=== PATIENT | male | born 1970 | race Caucasian/White ===

== ENCOUNTER → 2016-09-28 | Outpatient (CLI) | payer BC ==
[~2016-09-28] MED LIST: ASPIRIN LITE C325 MG PO; ATORVASTATIN CA20 M1 PO; CABERGOLINE0.5 MG PO; CARVEDILOL12.5 MG PO; DAYPRO600 M1 PO; L-THYROXINE PO; LEVIMER SQ; LOSARTAN POTASS50 M1 PO; NOVALOG; ROBAXIN750 MG PO; SKELAXIN800 MG PO; VICODIN 500 MG-1 TAB PO; VITAMIN D50000 I3 PO
== END | disposition home or self-care (01) ==
LOC: CARD 08-19 14:00
DX: R06.09 Other forms of dyspnea (principal)

== ENCOUNTER → 2017-05-03 | Outpatient (CLI) | payer BC ==
[2017-05-03 10:10] LABS: BUN 26 mg/dl (7-24)
[2017-05-03 10:22] LABS: CHOLESTEROL 153 mg/dL (<200); CREATININE 1.36 mg/dL (0.70-1.30); HDL CHOLESTEROL 55 mg/dl (40-60); LDL CHOLESTEROL 75 mg/dL (9-159); SGOT/AST 21 IU/L (3-35); SGPT/ALT 51 U/L (12-78); TRIGLYCERIDES 115 mg/dl (<150); VLDL CHOLESTEROL 23 mg/dL (6-40)
[2017-05-03 10:32] LABS: VITAMIN D, 25-HYDROXY 10.2 ng/mL (30-100)
== END | disposition home or self-care (01) ==
LOC: LAB 08:50
PROVIDERS: Internal Medicine Endocrinology, Diabetes & Metabolism
DX: I10 Essential (primary) hypertension (principal); E10.65 Type 1 diabetes mellitus with hyperglycemia; D35.2 Benign neoplasm of pituitary gland; E29.1 Testicular hypofunction; E78.5 Hyperlipidemia, unspecified; E22.1 Hyperprolactinemia; E55.9 Vitamin D deficiency, unspecified

== ENCOUNTER → 2017-11-04 | Outpatient (CLI) | payer BC ==
[2017-11-04 05:19] LABS: THYROID STIM HORMONE (HS) 1.46 uIU/ml (0.358-4.75)
== END | disposition home or self-care (01) ==
LOC: LAB 04:19
PROVIDERS: Internal Medicine Endocrinology, Diabetes & Metabolism
DX: E10.65 Type 1 diabetes mellitus with hyperglycemia (principal); E22.1 Hyperprolactinemia; D35.2 Benign neoplasm of pituitary gland; E55.9 Vitamin D deficiency, unspecified; E29.1 Testicular hypofunction

== ENCOUNTER → 2018-05-05 | Outpatient (CLI) | payer BC ==
[2018-05-05 09:09] LABS: CREATININE 1.62 mg/dL (0.70-1.30)
[2018-05-05 09:14] LABS: THYROID STIM HORMONE (HS) 1.46 uIU/ml (0.358-4.75)
[2018-05-06 05:06] LABS: LDL CHOLESTEROL (DIRECT) 194 mg/dL (0-99)
== END | disposition home or self-care (01) ==
LOC: LAB 08:03
PROVIDERS: Internal Medicine Endocrinology, Diabetes & Metabolism
DX: I10 Essential (primary) hypertension (principal); E10.65 Type 1 diabetes mellitus with hyperglycemia; E22.1 Hyperprolactinemia; D35.2 Benign neoplasm of pituitary gland; E55.9 Vitamin D deficiency, unspecified; E29.1 Testicular hypofunction

== ENCOUNTER → 2018-08-04 | Outpatient (CLI) | payer BC ==
[2018-08-04 08:02] LABS: CREATININE 1.71 mg/dL (0.70-1.30)
[2018-08-04 08:10] LABS: THYROID STIM HORMONE (HS) 1.25 uIU/ml (0.358-4.75)
[2018-08-04 08:47] LABS: VITAMIN D, 25-HYDROXY 40.6 ng/mL (30-100)
[2018-08-05 06:12] LABS: PROLACTIN 004465 14.8 ng/mL (4.0-15.2)
[2018-08-05 08:11] LABS: LDL CHOLESTEROL (DIRECT) 98 mg/dL (0-99)
== END | disposition home or self-care (01) ==
LOC: LAB 06:46
PROVIDERS: Internal Medicine Endocrinology, Diabetes & Metabolism
DX: I10 Essential (primary) hypertension (principal); E10.65 Type 1 diabetes mellitus with hyperglycemia; E78.5 Hyperlipidemia, unspecified; E22.1 Hyperprolactinemia; D35.2 Benign neoplasm of pituitary gland; E55.9 Vitamin D deficiency, unspecified

== ENCOUNTER → 2018-11-18 | Outpatient (CLI) | payer BC ==
[2018-11-18 04:46] LABS: CREATININE 1.69 mg/dL (0.70-1.30)
[2018-11-18 04:52] LABS: THYROID STIM HORMONE (HS) 1.28 uIU/ml (0.358-4.75)
== END | disposition home or self-care (01) ==
LOC: LAB 04:04
PROVIDERS: Internal Medicine Endocrinology, Diabetes & Metabolism
DX: E10.65 Type 1 diabetes mellitus with hyperglycemia (principal); E22.1 Hyperprolactinemia; D35.2 Benign neoplasm of pituitary gland; E55.9 Vitamin D deficiency, unspecified; I10 Essential (primary) hypertension; E78.5 Hyperlipidemia, unspecified

== ENCOUNTER → 2019-03-09 | Outpatient (CLI) | payer BC ==
[2019-03-09 07:02] LABS: CREATININE 2.19 mg/dL (0.70-1.30)
[2019-03-09 07:08] LABS: THYROID STIM HORMONE (HS) 2.17 uIU/ml (0.358-4.75)
[2019-03-09 08:32] LABS: VITAMIN D, 25-HYDROXY 44.5 ng/mL (30-100)
== END | disposition home or self-care (01) ==
LOC: LAB 05:51
PROVIDERS: Internal Medicine Endocrinology, Diabetes & Metabolism
DX: E10.65 Type 1 diabetes mellitus with hyperglycemia (principal); I10 Essential (primary) hypertension; E78.5 Hyperlipidemia, unspecified; E22.1 Hyperprolactinemia; D35.2 Benign neoplasm of pituitary gland; E55.9 Vitamin D deficiency, unspecified; R35.1 Nocturia

== ENCOUNTER → 2019-06-18 | Outpatient (CLI) | payer BC ==
[2019-06-18 06:27] LABS: CREATININE 1.79 mg/dL (0.70-1.30)
[2019-06-18 06:33] LABS: THYROID STIM HORMONE (HS) 1.2 uIU/ml (0.358-4.75)
== END | disposition home or self-care (01) ==
LOC: LAB 04:43
PROVIDERS: Internal Medicine Endocrinology, Diabetes & Metabolism
DX: E10.65 Type 1 diabetes mellitus with hyperglycemia (principal); I10 Essential (primary) hypertension; E22.1 Hyperprolactinemia; D35.2 Benign neoplasm of pituitary gland; E55.9 Vitamin D deficiency, unspecified; E29.1 Testicular hypofunction; R35.1 Nocturia

== ENCOUNTER → 2019-11-26 | Outpatient (CLI) | payer BC ==
[2019-11-26 08:34] LABS: CREATININE 1.78 mg/dL (0.70-1.30); THYROID STIM HORMONE (HS) 2.15 uIU/ml (0.358-4.75)
[2019-11-26 09:49] LABS: VITAMIN D, 25-HYDROXY 58.9 ng/mL (30-100)
== END | disposition home or self-care (01) ==
LOC: LAB 06:52
PROVIDERS: Internal Medicine Endocrinology, Diabetes & Metabolism
DX: I12.9 Hypertensive chronic kidney disease with stage 1 through stage 4 chronic kidney disease, or unspecified chronic kidney disease (principal); N18.9 Chronic kidney disease, unspecified; E10.65 Type 1 diabetes mellitus with hyperglycemia; E78.5 Hyperlipidemia, unspecified; E22.1 Hyperprolactinemia; D35.1 Benign neoplasm of parathyroid gland; D35.2 Benign neoplasm of pituitary gland; E55.9 Vitamin D deficiency, unspecified; E29.1 Testicular hypofunction; R35.1 Nocturia

== ENCOUNTER → 2020-03-28 | Outpatient (CLI) | payer BC ==
[2020-03-28 09:18] LABS: BILIRUBIN Negative (Negative); BLOOD Negative (Negative); CLARITY Clear (Clear); COLOR Yellow (Yellow); GLUCOSE 2+ (Negative); KETONE Negative (Negative); LEUKO ESTERASE Negative (Negative); NITRITE Negative (Negative); SPECIFIC GRAVITY 1.015 (1.001-1.030)
[2020-03-28 09:24] LABS: URINE CREATININE RANDOM 68.2 mg/dL
[2020-03-28 09:25] LABS: CREATININE 1.99 mg/dL (0.70-1.30); POTASSIUM 4.6 mmol/L (3.5-5.1); TOTAL PROTEIN 7.3 gm/dL (6.4-8.2); URIC ACID 6.3 mg/dL (3.5-7.2)
[2020-03-28 09:33] LABS: BASO # 0.1 10*3/uL (0.0-0.1); BASO % 0.6 % (0.0-1.0); EOS # 0.2 10*3/uL (0.0-0.4); EOS % 2.5 % (1.0-4.0); HEMATOCRIT 42.4 % (42.0-52.0); LYMPH # 3.4 10*3/uL (1.3-4.4); LYMPH % 35.8 % (27.0-41.0); MEAN CELL VOLUME 88.1 fl (80.0-94.0); MEAN CORPUSCULAR HGB 28.1 pg (27.0-31.0); MEAN CORPUSCULAR HGB CONC 31.8 g/dl (33.0-37.0); MEAN PLATELET VOLUME 12.3 fl (9.6-12.3); MONO # 0.9 10*3/uL (0.1-1.0); NEUT # 4.9 10*3/uL (2.3-7.9); NEUT % 51.8 % (47.0-73.0); PLATELET COUNT AUTOMATED 249 10*3/uL (130-400); RED BLOOD COUNT 4.81 10*6/uL (4.50-5.90); RED CELL DISTRI WIDTH 13.5 % (0-14.5); WHITE BLOOD COUNT 9.5 10*3/uL (4.8-10.8)
[2020-03-28 09:39] LABS: BACTERIA TRACE
[2020-03-29 09:09] LABS: CREATININE,URINE 63.9 mg/dL (Not Estab.)
== END | disposition home or self-care (01) ==
LOC: LAB 08:33
PROVIDERS: ATTEND Internal Medicine Nephrology
DX: I12.9 Hypertensive chronic kidney disease with stage 1 through stage 4 chronic kidney disease, or unspecified chronic kidney disease (principal); N18.30 Chronic kidney disease, stage 3 unspecified; E10.29 Type 1 diabetes mellitus with other diabetic kidney complication; E66.9 Obesity, unspecified

== ENCOUNTER → 2020-08-08 | Outpatient (CLI) | payer BC ==
[2020-08-08 06:14] LABS: CREATININE 1.88 mg/dL (0.70-1.30)
[2020-08-08 06:25] LABS: THYROID STIM HORMONE (HS) 2.42 uIU/ml (0.358-4.75)
== END | disposition home or self-care (01) ==
LOC: LAB 04:33
PROVIDERS: ATTEND Internal Medicine Endocrinology, Diabetes & Metabolism
DX: I12.9 Hypertensive chronic kidney disease with stage 1 through stage 4 chronic kidney disease, or unspecified chronic kidney disease (principal); N18.9 Chronic kidney disease, unspecified; E10.65 Type 1 diabetes mellitus with hyperglycemia; E78.5 Hyperlipidemia, unspecified; E22.1 Hyperprolactinemia; D35.2 Benign neoplasm of pituitary gland; E55.9 Vitamin D deficiency, unspecified; R35.1 Nocturia

== ENCOUNTER → 2020-12-16 | Outpatient (CLI) | payer BC ==
[2020-12-16 09:59] LABS: CREATININE 1.94 mg/dL (0.70-1.30); THYROID STIM HORMONE (HS) 1.96 uIU/ml (0.358-4.75)
== END | disposition home or self-care (01) ==
LOC: LAB 08:54
PROVIDERS: ATTEND Internal Medicine Endocrinology, Diabetes & Metabolism
DX: I12.9 Hypertensive chronic kidney disease with stage 1 through stage 4 chronic kidney disease, or unspecified chronic kidney disease (principal); E10.22 Type 1 diabetes mellitus with diabetic chronic kidney disease; N18.9 Chronic kidney disease, unspecified; E10.65 Type 1 diabetes mellitus with hyperglycemia; E78.5 Hyperlipidemia, unspecified; E22.1 Hyperprolactinemia; D35.2 Benign neoplasm of pituitary gland; E55.9 Vitamin D deficiency, unspecified; R35.1 Nocturia

== ENCOUNTER → 2021-05-29 | Outpatient (CLI) | payer BC ==
[2021-05-29 06:11] LABS: CREATININE 1.93 mg/dL (0.70-1.30)
[2021-05-29 06:17] LABS: THYROID STIM HORMONE (HS) 2.32 uIU/ml (0.358-4.75)
[2021-05-29 07:26] LABS: VITAMIN D, 25-HYDROXY 35.9 ng/mL (30-100)
== END ==
LOC: LAB 05:13
PROVIDERS: ATTEND Internal Medicine Endocrinology, Diabetes & Metabolism
DX: I12.9 Hypertensive chronic kidney disease with stage 1 through stage 4 chronic kidney disease, or unspecified chronic kidney disease (principal); E78.5 Hyperlipidemia, unspecified; E10.65 Type 1 diabetes mellitus with hyperglycemia; E22.1 Hyperprolactinemia; D35.2 Benign neoplasm of pituitary gland; E55.9 Vitamin D deficiency, unspecified; R35.1 Nocturia; N18.9 Chronic kidney disease, unspecified; E03.9 Hypothyroidism, unspecified

== ENCOUNTER → 2021-08-27 | Outpatient (CLI) | payer BC ==
[2021-08-27 06:30] LABS: CREATININE 2.53 mg/dL (0.70-1.30)
[2021-08-27 06:38] LABS: THYROID STIM HORMONE (HS) 1.27 uIU/ml (0.358-4.75)
== END | disposition home or self-care (01) ==
LOC: LAB 05:29
PROVIDERS: ATTEND Internal Medicine Endocrinology, Diabetes & Metabolism
DX: E10.65 Type 1 diabetes mellitus with hyperglycemia (principal); E22.1 Hyperprolactinemia; D35.2 Benign neoplasm of pituitary gland; E55.9 Vitamin D deficiency, unspecified; E29.1 Testicular hypofunction; I12.9 Hypertensive chronic kidney disease with stage 1 through stage 4 chronic kidney disease, or unspecified chronic kidney disease; E10.22 Type 1 diabetes mellitus with diabetic chronic kidney disease; N18.9 Chronic kidney disease, unspecified; R35.1 Nocturia; E03.9 Hypothyroidism, unspecified

== ENCOUNTER → 2022-01-21 | Outpatient (CLI) | payer BC ==
[2022-01-21 09:17] LABS: HEMATOCRIT 44.3 % (42.0-52.0); MEAN CELL VOLUME 84.5 fl (80.0-94.0); MEAN CORPUSCULAR HGB 28.1 pg (27.0-31.0); MEAN CORPUSCULAR HGB CONC 33.2 g/dl (33.0-37.0); MEAN PLATELET VOLUME 12.1 fl (9.6-12.3); RED BLOOD COUNT 5.24 10*6/uL (4.50-5.90); RED CELL DISTRI WIDTH 13.2 % (0-14.5); WHITE BLOOD COUNT 8.9 10*3/uL (4.8-10.8)
[2022-01-21 09:38] LABS: CREATININE 1.58 mg/dL (0.70-1.30); POTASSIUM 4.1 mmol/L (3.5-5.1)
[2022-01-21 09:45] LABS: FREE T4 1.17 ng/dl (0.76-1.46); THYROID STIM HORMONE (HS) 2.26 uIU/ml (0.358-4.75); TOTAL PROTEIN 7.3 gm/dL (6.4-8.2)
[2022-01-21 10:20] LABS: VITAMIN D, 25-HYDROXY 31.6 ng/mL (30-100)
== END | disposition home or self-care (01) ==
LOC: LAB 08:50
PROVIDERS: Family Medicine; ATTEND Internal Medicine Endocrinology, Diabetes & Metabolism
DX: Z12.5 Encounter for screening for malignant neoplasm of prostate (principal); I12.9 Hypertensive chronic kidney disease with stage 1 through stage 4 chronic kidney disease, or unspecified chronic kidney disease; N18.30 Chronic kidney disease, stage 3 unspecified; E10.65 Type 1 diabetes mellitus with hyperglycemia; E78.00 Pure hypercholesterolemia, unspecified; E55.9 Vitamin D deficiency, unspecified

== ENCOUNTER → 2022-02-11 | Outpatient (CLI) | payer BC | END | disposition home or self-care (01) | LOC: LAB 10:40 | PROVIDERS: ATTEND Family Medicine | DX: I12.9 Hypertensive chronic kidney disease with stage 1 through stage 4 chronic kidney disease, or unspecified chronic kidney disease (principal); E11.22 Type 2 diabetes mellitus with diabetic chronic kidney disease; E78.00 Pure hypercholesterolemia, unspecified; N18.30 Chronic kidney disease, stage 3 unspecified; E55.9 Vitamin D deficiency, unspecified; Z12.5 Encounter for screening for malignant neoplasm of prostate ==

== ENCOUNTER → 2022-02-26 | Outpatient (CLI) | payer BC | END | disposition home or self-care (01) | LOC: RAD 17:58 | PROVIDERS: ATTEND Family Medicine | DX: M51.36 Other intervertebral disc degeneration, lumbar region (principal); M25.78 Osteophyte, vertebrae ==

== ENCOUNTER → 2022-07-16 | Outpatient (CLI) | payer BC ==
[2022-07-16 10:43] LABS: BUN 25 mg/dl (9-23); CHOLESTEROL 180 mg/dL (<200); LDL CHOLESTEROL 98 mg/dL (9-159); SGPT/ALT 43 U/L (10-49); THYROID STIM HORMONE (HS) 2.147 uIU/ml (0.550-4.780); TRIGLYCERIDES 178 mg/dl (<150)
== END | disposition home or self-care (01) ==
LOC: LAB 09:14
PROVIDERS: ATTEND Internal Medicine Endocrinology, Diabetes & Metabolism
DX: I12.9 Hypertensive chronic kidney disease with stage 1 through stage 4 chronic kidney disease, or unspecified chronic kidney disease (principal); E10.22 Type 1 diabetes mellitus with diabetic chronic kidney disease; N18.9 Chronic kidney disease, unspecified; E10.65 Type 1 diabetes mellitus with hyperglycemia; E22.1 Hyperprolactinemia; D35.2 Benign neoplasm of pituitary gland; E55.9 Vitamin D deficiency, unspecified; E29.1 Testicular hypofunction; R35.1 Nocturia; E03.9 Hypothyroidism, unspecified

== ENCOUNTER → 2022-11-27 | Outpatient (CLI) | payer BC ==
[2022-11-27 09:10] LABS: THYROID STIM HORMONE (HS) 2.642 uIU/ml (0.550-4.780)
== END | disposition home or self-care (01) ==
LOC: LAB 07:42
PROVIDERS: ATTEND Internal Medicine Endocrinology, Diabetes & Metabolism
DX: I12.9 Hypertensive chronic kidney disease with stage 1 through stage 4 chronic kidney disease, or unspecified chronic kidney disease (principal); N18.9 Chronic kidney disease, unspecified; E11.22 Type 2 diabetes mellitus with diabetic chronic kidney disease; E78.5 Hyperlipidemia, unspecified; R22.1 Localized swelling, mass and lump, neck; E55.9 Vitamin D deficiency, unspecified; E03.9 Hypothyroidism, unspecified; D35.2 Benign neoplasm of pituitary gland; R35.1 Nocturia

== ENCOUNTER → 2023-05-07 | Outpatient (CLI) | payer BC | END | disposition home or self-care (01) | LOC: LAB 08:28 | PROVIDERS: ATTEND Internal Medicine Endocrinology, Diabetes & Metabolism | DX: E10.22 Type 1 diabetes mellitus with diabetic chronic kidney disease (principal); I12.9 Hypertensive chronic kidney disease with stage 1 through stage 4 chronic kidney disease, or unspecified chronic kidney disease; N18.9 Chronic kidney disease, unspecified; E78.5 Hyperlipidemia, unspecified; E22.1 Hyperprolactinemia; D35.2 Benign neoplasm of pituitary gland; E55.9 Vitamin D deficiency, unspecified; R35.1 Nocturia; E03.9 Hypothyroidism, unspecified ==

== ENCOUNTER → 2023-09-09 | Outpatient (CLI) | payer BC | END | disposition home or self-care (01) | LOC: LAB 08:25 | PROVIDERS: ATTEND Internal Medicine Endocrinology, Diabetes & Metabolism | DX: E10.65 Type 1 diabetes mellitus with hyperglycemia (principal); E10.22 Type 1 diabetes mellitus with diabetic chronic kidney disease; I12.9 Hypertensive chronic kidney disease with stage 1 through stage 4 chronic kidney disease, or unspecified chronic kidney disease; N18.9 Chronic kidney disease, unspecified; E03.9 Hypothyroidism, unspecified; E22.1 Hyperprolactinemia; D35.2 Benign neoplasm of pituitary gland; E55.9 Vitamin D deficiency, unspecified; E29.1 Testicular hypofunction; R35.1 Nocturia ==

== ENCOUNTER 2023-10-25 07:28 | Emergency (ER) | payer BC ==
[~2023-10-25] VITALS: Ht 177.8 cm; Wt 95.3 kg
[2023-10-25 09:04] LABS: BASO % 0.3 % (0.0-1.0); EOS # 0.4 10*3/uL (0.0-0.4); EOS % 3.5 % (1.0-4.0); HEMATOCRIT 40.3 % (42.0-52.0); LYMPH % 27.8 % (27.0-41.0); MEAN CELL VOLUME 87.2 fl (80.0-94.0); MEAN CORPUSCULAR HGB 28.1 pg (27.0-31.0); MEAN CORPUSCULAR HGB CONC 32.3 g/dl (33.0-37.0); MONO # 1.4 10*3/uL (0.1-1.0); MONO % 12.8 % (3.0-9.0); NEUT # 5.9 10*3/uL (2.3-7.9); NEUT % 55.2 % (47.0-73.0); PLATELET COUNT AUTOMATED 199 10*3/uL (130-400); RED BLOOD COUNT 4.62 10*6/uL (4.50-5.90); RED CELL DISTRI WIDTH 13.7 % (0-14.5); WHITE BLOOD COUNT 10.7 10*3/uL (4.8-10.8)
[2023-10-25 09:25] LABS: POTASSIUM 4.8 mmol/L (3.4-5.1)
[2023-10-25] MEDS ORDERED: MUCINEX ER600 MG PO (10:44)
== END 2023-10-25 10:48 | disposition home or self-care (01) ==
LOC: ED 07:28
PROVIDERS: Emergency Medicine
DX: J06.9 Acute upper respiratory infection, unspecified (principal); Z20.822 Contact with and (suspected) exposure to COVID-19; I10 Essential (primary) hypertension; E11.9 Type 2 diabetes mellitus without complications; E78.00 Pure hypercholesterolemia, unspecified; Z79.4 Long term (current) use of insulin; Z79.82 Long term (current) use of aspirin; Z79.899 Other long term (current) drug therapy

== ENCOUNTER → 2024-02-11 | Outpatient (CLI) | payer BC ==
[~2024-02-11] MED LIST changes: +MUCINEX ER600 MG PO
[2024-02-11 09:17] LABS: ALKALINE PHOSPHATASE 164 U/L (46-116); BUN 25 mg/dl (9-23); CHLORIDE 105 mmol/L (98-107); CHOLESTEROL 180 mg/dL (<200); LDL CHOLESTEROL 87 mg/dL (9-159); POTASSIUM 3.9 mmol/L (3.4-5.1); SGPT/ALT 58 U/L (5-49); TOTAL PROTEIN 6.8 gm/dL (6.0-8.0); TRIGLYCERIDES 249 mg/dl (<150)
== END | disposition home or self-care (01) ==
LOC: LAB 08:27
PROVIDERS: ATTEND Internal Medicine Endocrinology, Diabetes & Metabolism
DX: I12.9 Hypertensive chronic kidney disease with stage 1 through stage 4 chronic kidney disease, or unspecified chronic kidney disease (principal); E10.22 Type 1 diabetes mellitus with diabetic chronic kidney disease; E10.65 Type 1 diabetes mellitus with hyperglycemia; N18.9 Chronic kidney disease, unspecified; E78.5 Hyperlipidemia, unspecified; E22.1 Hyperprolactinemia; D35.2 Benign neoplasm of pituitary gland; E55.9 Vitamin D deficiency, unspecified; E29.1 Testicular hypofunction; R35.1 Nocturia; E03.9 Hypothyroidism, unspecified

== ENCOUNTER → 2024-02-16 | Outpatient (CLI) | payer BC ==
[~2024-02-16] MED LIST changes: +TRAMADOL HCL50 MG PO
== END | disposition home or self-care (01) ==
LOC: RAD 12:42
PROVIDERS: ATTEND Family Medicine
DX: M19.011 Primary osteoarthritis, right shoulder (principal); M47.812 Spondylosis without myelopathy or radiculopathy, cervical region; M48.02 Spinal stenosis, cervical region; M25.78 Osteophyte, vertebrae

== ENCOUNTER 2024-02-19 04:31 | Emergency (ER) | payer BC ==
[~2024-02-19] VITALS: Ht 177.8 cm; Wt 99.8 kg
[~2024-02-19 04:31] MED LIST changes: -TRAMADOL HCL50 MG PO
[2024-02-19] MEDS ORDERED: Dexamethasone Sodium Phospha 20 MG/5 ML VIAL IM ONE (05:10)
[2024-02-19] MEDS ORDERED: TRAMADOL HCL50 MG PO (05:10)
== END 2024-02-19 05:54 | disposition home or self-care (01) ==
LOC: ED 04:31
DX: M19.011 Primary osteoarthritis, right shoulder (principal); E11.9 Type 2 diabetes mellitus without complications; J45.909 Unspecified asthma, uncomplicated; I10 Essential (primary) hypertension; E78.00 Pure hypercholesterolemia, unspecified; Z98.890 Other specified postprocedural states

== ENCOUNTER → 2024-05-25 | Outpatient (CLI) | payer BC ==
[~2024-05-25] MED LIST changes: +TRAMADOL HCL50 MG PO
[2024-05-25 12:15] LABS: MEAN CELL VOLUME 86.2 fl (80.0-94.0); MEAN CORPUSCULAR HGB 28.5 pg (27.0-31.0); MEAN CORPUSCULAR HGB CONC 33.1 g/dl (33.0-37.0); MEAN PLATELET VOLUME 12.2 fl (9.6-12.3); RED BLOOD COUNT 5.22 10*6/uL (4.50-5.90); RED CELL DISTRI WIDTH 13.1 % (0-14.5); WHITE BLOOD COUNT 11.5 10*3/uL (4.8-10.8)
[2024-05-25 12:50] LABS: ALKALINE PHOSPHATASE 147 U/L (46-116); BUN 28 mg/dl (9-23); CHLORIDE 105 mmol/L (98-107); CHOLESTEROL 171 mg/dL (<200); FREE T4 1.29 ng/dl (0.89-1.76); LDL CHOLESTEROL 71 mg/dL (9-159); POTASSIUM 4.1 mmol/L (3.4-5.1); SGPT/ALT 38 U/L (5-49); TOTAL PROTEIN 7.1 gm/dL (6.0-8.0); TRIGLYCERIDES 271 mg/dl (<150); VITAMIN D, 25-HYDROXY 26.4 ng/mL (30-100)
== END | disposition home or self-care (01) ==
LOC: LAB 11:43
PROVIDERS: ATTEND Family Medicine
DX: Z12.5 Encounter for screening for malignant neoplasm of prostate (principal); Z00.00 Encounter for general adult medical examination without abnormal findings; E55.9 Vitamin D deficiency, unspecified; E03.9 Hypothyroidism, unspecified; E78.00 Pure hypercholesterolemia, unspecified; E11.9 Type 2 diabetes mellitus without complications; R06.02 Shortness of breath; R05.9 Cough, unspecified; R07.9 Chest pain, unspecified

== ENCOUNTER → 2024-08-31 | Outpatient (CLI) | payer BC ==
[2024-08-31 08:09] LABS: HEMATOCRIT 44.7 % (42.0-52.0); MEAN CELL VOLUME 85.1 fl (80.0-94.0); MEAN CORPUSCULAR HGB 28.2 pg (27.0-31.0); MEAN CORPUSCULAR HGB CONC 33.1 g/dl (33.0-37.0); MEAN PLATELET VOLUME 12.3 fl (9.6-12.3); RED BLOOD COUNT 5.25 10*6/uL (4.50-5.90); RED CELL DISTRI WIDTH 13.3 % (0-14.5); WHITE BLOOD COUNT 9.7 10*3/uL (4.8-10.8)
[2024-08-31 09:19] LABS: VITAMIN D, 25-HYDROXY 34.7 ng/mL (30-100)
[2024-08-31 09:39] LABS: ALKALINE PHOSPHATASE 154 U/L (46-116); BUN 29 mg/dl (9-23); CHLORIDE 104 mmol/L (98-107); CHOLESTEROL 174 mg/dL (<200); CPK 91 U/L (34-171); LDL CHOLESTEROL 92 mg/dL (9-159); SGPT/ALT 53 U/L (5-49); TOTAL PROTEIN 7.1 gm/dL (6.0-8.0); TRIGLYCERIDES 164 mg/dl (<150)
== END | disposition home or self-care (01) ==
LOC: LAB 07:45
PROVIDERS: ATTEND Family Medicine
DX: I10 Essential (primary) hypertension (principal); E78.00 Pure hypercholesterolemia, unspecified; E55.9 Vitamin D deficiency, unspecified; E11.9 Type 2 diabetes mellitus without complications; E03.9 Hypothyroidism, unspecified

== ENCOUNTER → 2024-11-09 | Outpatient (CLI) | payer BC | END | disposition home or self-care (01) | LOC: RAD 14:48 | PROVIDERS: ATTEND Internal Medicine Gastroenterology | DX: R15.1 Fecal smearing (principal) ==

== ENCOUNTER → 2025-03-22 | Outpatient (CLI) | payer BC ==
[2025-03-22 14:32] LABS: BASO # 0.1 10*3/uL (0.0-0.1); BASO % 0.6 % (0.0-1.0); EOS # 0.3 10*3/uL (0.0-0.4); EOS % 2.6 % (1.0-4.0); MEAN CELL VOLUME 85.8 fl (80.0-94.0); MEAN CORPUSCULAR HGB 28.0 pg (27.0-31.0); MEAN PLATELET VOLUME 12.7 fl (9.6-12.3); MONO # 1.0 10*3/uL (0.1-1.0); MONO % 10.0 % (3.0-9.0); NEUT # 5.0 10*3/uL (2.3-7.9); NEUT % 51.8 % (47.0-73.0); NUCLEATED RED BLOOD CELL 0.0 % (0.0-0.0); NUCLEATED RED BLOOD CELL 0.0 10*3/uL (0.0-0.0); PLATELET COUNT AUTOMATED 182 10*3/uL (130-400); RED CELL DISTRI WIDTH 13.3 % (0-14.5)
[2025-03-22 14:33] LABS: BILIRUBIN Negative (Negative); BLOOD Negative (Negative); CLARITY Clear (Clear); COLOR Yellow (Yellow); KETONE Negative (Negative); LEUKO ESTERASE Negative (Negative); NITRITE Negative (Negative); PH 6.0 (4.5-8.0); SPECIFIC GRAVITY 1.015 (1.001-1.030); UROBILINOGEN 1.0 E.U./dl (0.0-1.0)
[2025-03-22 14:44] LABS: EPITHELIAL CELLS 31-40; HYALINE CAST 0-2; RBC 0-2 rbc/hpf (0-2)
[2025-03-22 14:45] LABS: MUCOUS TRACE
[2025-03-22 14:53] LABS: BUN 31.0 mg/dl (9-23)
[2025-03-22 15:05] LABS: VITAMIN D, 25-HYDROXY 24.3 ng/mL (30-100)
== END | disposition home or self-care (01) ==
LOC: LAB 13:49
PROVIDERS: ATTEND Internal Medicine Nephrology
DX: E10.9 Type 1 diabetes mellitus without complications (principal); E55.9 Vitamin D deficiency, unspecified; N18.30 Chronic kidney disease, stage 3 unspecified

== ENCOUNTER → 2025-03-27 | Outpatient (CLI) | payer BC | END | disposition home or self-care (01) | LOC: US 14:20 | PROVIDERS: ATTEND Internal Medicine Nephrology | DX: N18.30 Chronic kidney disease, stage 3 unspecified (principal) ==

== ENCOUNTER → 2025-04-04 | Outpatient (CLI) | payer BC | END | disposition home or self-care (01) | LOC: CT 01:32 | PROVIDERS: ATTEND Family Medicine | DX: N20.1 Calculus of ureter (principal); N32.89 Other specified disorders of bladder; N30.80 Other cystitis without hematuria; R14.0 Abdominal distension (gaseous) ==

== ENCOUNTER → 2025-04-12 | Outpatient (CLI) | payer BC ==
[2025-04-12 10:15] LABS: BUN 29 mg/dl (9-23); FREE T4 1.48 ng/dl (0.89-1.76); LDL CHOLESTEROL 184 mg/dL (9-159); SGPT/ALT 39 U/L (5-49)
== END | disposition home or self-care (01) ==
LOC: LAB 08:53
PROVIDERS: ATTEND Internal Medicine Endocrinology, Diabetes & Metabolism
DX: E10.65 Type 1 diabetes mellitus with hyperglycemia (principal); E22.1 Hyperprolactinemia; E78.2 Mixed hyperlipidemia